=== PATIENT | female | born 1990 | race American Indian/Alaskan Native ===

== ENCOUNTER 2018-03-31 23:53 | Emergency (ER) | payer MEDICAID | END 2018-04-01 00:53 | disposition left against medical advice (07) | LOC: ED 23:53 | DX: R11.0 Nausea (principal); Z53.21 Procedure and treatment not carried out due to patient leaving prior to being seen by health care provider | CPT/HCPCS: 99281 ==

== ENCOUNTER 2019-03-03 07:20 | Emergency (ER) | payer MEDICAID ==
[2019-03-03 07:24] VITALS: BP 163/100
[2019-03-03 08:03] LABS: Basophils % (Auto) 0.4 % (0.0-1.8); Eosinophils % (Auto) 0.7 % (0.0-4.3); Hematocrit 36.7 % (30.3-42.9); Hemoglobin 12.3 gm/dl (10.1-14.3); Lymphocytes # (Auto) 2.1 K/mm3 (1.2-5.4); Mean Corpuscular HGB Conc 34 % (30-34); Mean Corpuscular Volume 90 fl (79-97); Monocytes # (Auto) 0.4 K/mm3 (0.0-0.8); Monocytes % (Auto) 6.4 % (0.0-7.3); Platelet Count 324 K/mm3 (140-440); Red Blood Count 4.09 M/mm3 (3.65-5.03); Red Cell Distribution Width 14.8 % (13.2-15.2)
[2019-03-03 08:05] LABS: Bilirubin,Urine NEG (Negative); Blood,Urine LG (Negative); Color,Urine Red (Yellow); Urobilinogen,Urine < 2.0 mg/dL (<2.0)
--- NOTE | 2019-03-03 08:31 | Emergency Department Report ---
ED General Adult HPI - General Chief complaint: Vaginal Bleeding Stated complaint: VAGINAL BLEEDING Time Seen by Provider: 03/03/19 08:22 Source: patient Mode of arrival: Ambulatory Limitations: No Limitations - History of Present Illness Initial comments: She has 29-year-old female who presents with vaginal bleeding that's been going on for 41 days. Patient states that she has clots she has an appointment with her FREQUENCY CHECKER in April however she has not seen an FREQUENCY CHECKER as of yet. Patient denies having any vaginal intercourse or any sexual intercourse. Patient denies having any vaginal pain. Patient reports symptoms as mild nothing makes it better and nothing makes them worse. - Related Data Home Medications Medication Instructions Recorded Confirmed Last Taken buPROPion [Wellbutrin] 75 mg PO DAILY 09/23/15 05/05/16 09/22/15 Previous Rx's Medication Instructions Recorded Last Taken Type Azithromycin [Zithromax Z-JUAN CARLOS] 250 mg PO DAILY #6 tab 09/23/15 Unknown Rx Brompheniramine/Pseudoephed/Dm 10 ml PO Q12H PRN #150 ml 09/23/15 Unknown Rx [Bromfed Dm Cough Syrup] Ibuprofen [Motrin 800 MG tab] 800 mg PO Q8HR PRN #15 tablet 09/24/18 Unknown Rx guaiFENesin [Robitussin] 200 mg PO TID #100 ml 09/24/18 Unknown Rx predniSONE [Deltasone] 50 mg PO QDAY #5 tab 09/24/18 Unknown Rx Allergies Allergy/AdvReac Type Severity Reaction Status Date / Time azithromycin [From Zithromax] Allergy Hives Verified 03/03/19 07:22 ED Review of Systems ROS: Stated complaint: VAGINAL BLEEDING Other details as noted in HPI Constitutional: denies: chills, fever Eyes: denies: eye pain, eye discharge, vision change ENT: denies: ear pain, throat pain Respiratory: denies: cough, shortness of breath, wheezing Cardiovascular: denies: chest pain, palpitations Endocrine: no symptoms reported Gastrointestinal: denies: abdominal pain, nausea, diarrhea Genitourinary: other (vaginal bleeding). denies: urgency, dysuria, discharge Musculoskeletal: denies: back pain, joint swelling, arthralgia Skin: denies: rash, lesions Neurological: denies: headache, weakness, paresthesias Psychiatric: denies: anxiety, depression Hematological/Lymphatic: denies: easy bleeding, easy bruising ED Past Medical Hx - Past Medical History Hx Hypertension: Yes Hx Headaches / Migraines: Yes - Surgical History Additional Surgical History: c section - Social History Smoking Status: Current Every Day Smoker Substance Use Type: Alcohol - Medications Home Medications: Home Medications Medication Instructions Recorded Confirmed Last Taken Type Azithromycin [Zithromax Z-JUAN CARLOS] 250 mg PO DAILY #6 tab 09/23/15 05/05/16 Unknown Rx Brompheniramine/Pseudoephed/Dm 10 ml PO Q12H PRN #150 ml 09/23/15 05/05/16 Unknown Rx [Bromfed Dm Cough Syrup] buPROPion [Wellbutrin] 75 mg PO DAILY 09/23/15 05/05/16 09/22/15 History Ibuprofen [Motrin 800 MG tab] 800 mg PO Q8HR PRN #15 tablet 09/24/18 Unknown Rx guaiFENesin [Robitussin] 200 mg PO TID #100 ml 09/24/18 Unknown Rx predniSONE [Deltasone] 50 mg PO QDAY #5 tab 09/24/18 Unknown Rx ED Physical Exam - General Limitations: No Limitations General appearance: alert, in no apparent distress - Head Head exam: Present: atraumatic, normocephalic - Eye Eye exam: Present: normal appearance - ENT ENT exam: Present: mucous membranes moist - Neck Neck exam: Present: normal inspection - Respiratory Respiratory exam: Present: normal lung sounds bilaterally. Absent: respiratory distress - Cardiovascular Cardiovascular Exam: Present: regular rate, normal rhythm. Absent: systolic murmur, diastolic murmur, rubs, gallop - GI/Abdominal GI/Abdominal exam: Present: soft, normal bowel sounds - Extremities Exam Extremities exam: Present: normal inspection - Back Exam Back exam: Present: normal inspection - Neurological Exam Neurological exam: Present: alert, oriented X3 - Psychiatric Psychiatric exam: Present: normal affect, normal mood - Skin Skin exam: Present: warm, dry, intact, normal color. Absent: rash ED Course Vital Signs 03/03/19 07:22 Temperature 98.2 F Pulse Rate 107 H Respiratory 16 Rate Blood Pressure 163/100 O2 Sat by Pulse 100 Oximetry ED Medical Decision Making - Lab Data Result diagrams: 03/03/19 07:26 Lab Results 03/03/19 03/03/19 03/03/19 Range/Units 07:26 07:26 07:26 WBC 6.4 (4.5-11.0) K/mm3 RBC 4.09 (3.65-5.03) M/mm3 Hgb 12.3 (10.1-14.3) gm/dl Hct 36.7 (30.3-42.9) % MCV 90 (79-97) fl MCH 30 (28-32) pg MCHC 34 (30-34) % RDW 14.8 (13.2-15.2) % Plt Count 324 (140-440) K/mm3 Lymph % (Auto) 32.0 (13.4-35.0) % Barton % (Auto) 6.4 (0.0-7.3) % Eos % (Auto) 0.7 (0.0-4.3) % Baso % (Auto) 0.4 (0.0-1.8) % Lymph # 2.1 (1.2-5.4) K/mm3 Barton # 0.4 (0.0-0.8) K/mm3 Eos # 0.0 (0.0-0.4) K/mm3 Baso # 0.0 (0.0-0.1) K/mm3 Seg Neutrophils % 60.5 (40.0-70.0) % Seg Neutrophils # 3.9 (1.8-7.7) K/mm3 HCG, Quant < 2 (0-4) mIU/mL Urine Color (Yellow) Urine Turbidity (Clear) Urine pH (5.0-7.0) Ur Specific [place] (1.003-1.030) Urine Protein (Negative) mg/dL Urine Glucose (UA) (Negative) mg/dL Urine Ketones (Negative) mg/dL Urine Blood (Negative) Urine Nitrite (Negative) Urine Bilirubin (Negative) Urine Urobilinogen (<2.0) mg/dL Ur Leukocyte Esterase (Negative) Urine WBC (Auto) (0.0-6.0) /HPF Urine RBC (Auto) (0.0-6.0) /HPF U Epithel Cells (Auto) (0-13.0) /HPF Blood Type B POSITIVE 03/03/19 Range/Units Unknown WBC (4.5-11.0) K/mm3 RBC (3.65-5.03) M/mm3 Hgb (10.1-14.3) gm/dl Hct (30.3-42.9) % MCV (79-97) fl MCH (28-32) pg MCHC (30-34) % RDW (13.2-15.2) % Plt Count (140-440) K/mm3 Lymph % (Auto) (13.4-35.0) % Barton % (Auto) (0.0-7.3) % Eos % (Auto) (0.0-4.3) % Baso % (Auto) (0.0-1.8) % Lymph # (1.2-5.4) K/mm3 Barton # (0.0-0.8) K/mm3 Eos # (0.0-0.4) K/mm3 Baso # (0.0-0.1) K/mm3 Seg Neutrophils % (40.0-70.0) % Seg Neutrophils # (1.8-7.7) K/mm3 HCG, Quant (0-4) mIU/mL Urine Color Red (Yellow) Urine Turbidity Cloudy (Clear) Urine pH 8.0 H (5.0-7.0) Ur Specific [place] 1.018 (1.003-1.030) Urine Protein 100 mg/dl (Negative) mg/dL Urine Glucose (UA) Neg (Negative) mg/dL Urine Ketones Tr (Negative) mg/dL Urine Blood Lg (Negative) Urine Nitrite Neg (Negative) Urine Bilirubin Neg (Negative) Urine Urobilinogen < 2.0 (<2.0) mg/dL Ur Leukocyte Esterase Neg (Negative) Urine WBC (Auto) 4.0 (0.0-6.0) /HPF Urine RBC (Auto) > 182.0 (0.0-6.0) /HPF U Epithel Cells (Auto) 4.0 (0-13.0) /HPF Blood Type - Medical Decision Making Chief medical diagnosis dysfunctional uterine bleeding Differential medical diagnosis: UTI, metromenorrhagia CBC urinalysis next limits and patient's blood work is unremarkable patient's urine just shows hematuria. Social patient that she needs to follow up with her FREQUENCY CHECKER as the FREQUENCY CHECKER can better manage her vaginal bleeding and patient is not anemic and requires no acute medical intervention. Patient's diagnostic workup is unremarkable discussed discharge plan with patient. Patient agrees with plan additional verbal discharge instructions were given. Critical care attestation.: If time is entered above; I have spent that time in minutes in the direct care of this critically ill patient, excluding procedure time. ED Disposition Clinical Impression: Vaginal bleeding Disposition: TO HOME OR SELFCARE Is pt being admited?: No Does the pt Need Aspirin: No Condition: Stable Referrals: MATT CASTANEDA MD [Primary Care Provider] - 3-5 Days
[2019-03-03 08:37] LABS: RBC,Urine > 182.0 /HPF (0.0-6.0)
== END 2019-03-03 08:42 | disposition home or self-care (01) ==
LOC: ED 07:20
DX: N93.9 Abnormal uterine and vaginal bleeding, unspecified (principal); I10 Essential (primary) hypertension; G43.909 Migraine, unspecified, not intractable, without status migrainosus; F17.200 Nicotine dependence, unspecified, uncomplicated; Z88.1 Allergy status to other antibiotic agents
CPT/HCPCS: 36415; 81001; 84702; 84703; 85025; 86900; 86901; 99283

== ENCOUNTER 2020-11-30 02:03 | Emergency (ER) | payer MEDICAID ==
[2020-11-30] MEDS ORDERED: IBUPROFEN 600 MG TAB PO ONE (03:25)
[2020-11-30] MEDS ORDERED: ACETAMINOPHEN 500 MG TAB PO ONE (03:25)
[2020-11-30] MEDS ORDERED: AMOXICILLIN/K CLAV 875/125MG TAB PO ONE (03:25)
--- NOTE | 2020-11-30 03:29 | Emergency Department Report ---
ED General Adult HPI - General Chief complaint: Dental/Oral Stated complaint: DENTAL PAIN Source: patient Mode of arrival: Ambulatory Limitations: No Limitations - History of Present Illness Initial comments: Patient is a 30-year-old -Arm[place]ian female with a history of morbid obesity, hypertension and migraine headaches with chronic recurrent dental abscesses who presents to the ED with acute onset persistence severe right mandibular premolar molar toothache with right mandibular swollen gums and pain for the last 1 month, worse in the last 3 days. Patient states that she has been taking [id number] pain medications with no relief. Patient states that the last 8 hours, she has not been able to sleep because of worsening pain. Patient denies headache, dizziness, syncope, fever, chills, nausea, vomiting, diarrhea, sore throat, change in vision or neck pain and traumatic injury. MD Complaint: dental pain, swollen gums -: Sudden, month(s) (1) Location: mouth Radiation: non-radiation Severity scale (0 -10): 10 Quality: aching, sharp Consistency: constant Improves with: none Worsens with: eating Associated Symptoms: denies other symptoms. denies: confusion, chest pain, cough, diaphoresis, fever/chills, headaches, loss of appetite, malaise, nausea/vomiting, shortness of breath, syncope, weakness, other Treatments Prior to Arrival: none - Related Data Home Medications Medication Instructions Recorded Confirmed Last Taken buPROPion [Wellbutrin] 75 mg PO DAILY 09/23/15 05/05/16 09/22/15 Previous Rx's Medication Instructions Recorded Last Taken Type Azithromycin [Zithromax Z-JUAN CARLOS] 250 mg PO DAILY #6 tab 09/23/15 Unknown Rx Brompheniramine/Pseudoephed/Dm 10 ml PO Q12H PRN #150 ml 09/23/15 Unknown Rx [Bromfed Dm Cough Syrup] guaiFENesin [Robitussin] 200 mg PO TID #100 ml 09/24/18 Unknown Rx predniSONE [Deltasone] 50 mg PO QDAY #5 tab 09/24/18 Unknown Rx Acetaminophen/Codeine [Tylenol 1 tab PO Q6H PRN #12 tab 11/30/20 Unknown Rx /Codeine # 3 tab] Clindamycin [Clindamycin CAP] 300 mg PO Q8HR #60 capsule 11/30/20 Unknown Rx Ibuprofen [Motrin 800 MG tab] 800 mg PO Q8HR PRN #30 tablet 11/30/20 Unknown Rx Allergies Allergy/AdvReac Type Severity Reaction Status Date / Time azithromycin [From Zithromax] Allergy Hives Verified 03/03/19 07:22 ED Review of Systems ROS: Stated complaint: DENTAL PAIN Other details as noted in HPI Constitutional: denies: chills, fever Eyes: denies: eye pain, eye discharge, vision change ENT: dental pain (Right mandibular premolar molar toothache; painful swollen right mandibular gingiva). denies: ear pain, throat pain Respiratory: denies: cough, shortness of breath, wheezing Cardiovascular: denies: chest pain, palpitations, dyspnea on exertion Endocrine: no symptoms reported Gastrointestinal: denies: abdominal pain, nausea, vomiting, diarrhea, constipation, hematemesis, melena Genitourinary: denies: urgency, dysuria, frequency, discharge Musculoskeletal: denies: back pain, joint swelling, arthralgia Skin: denies: rash, lesions Neurological: denies: headache, weakness, paresthesias Psychiatric: denies: anxiety, depression Hematological/Lymphatic: denies: easy bleeding, easy bruising ED Past Medical Hx - Past Medical History Hx Hypertension: Yes Hx Headaches / Migraines: Yes - Surgical History Additional Surgical History: c section - Social History Smoking Status: Current Some Day Smoker Substance Use Type: None - Medications Home Medications: Home Medications Medication Instructions Recorded Confirmed Last Taken Type Azithromycin [Zithromax Z-JUAN CARLOS] 250 mg PO DAILY #6 tab 09/23/15 05/05/16 Unknown Rx Brompheniramine/Pseudoephed/Dm 10 ml PO Q12H PRN #150 ml 09/23/15 05/05/16 Unknown Rx [Bromfed Dm Cough Syrup] buPROPion [Wellbutrin] 75 mg PO DAILY 09/23/15 05/05/16 09/22/15 History guaiFENesin [Robitussin] 200 mg PO TID #100 ml 09/24/18 Unknown Rx predniSONE [Deltasone] 50 mg PO QDAY #5 tab 09/24/18 Unknown Rx Acetaminophen/Codeine [Tylenol 1 tab PO Q6H PRN #12 tab 11/30/20 Unknown Rx /Codeine # 3 tab] Clindamycin [Clindamycin CAP] 300 mg PO Q8HR #60 capsule 11/30/20 Unknown Rx Ibuprofen [Motrin 800 MG tab] 800 mg PO Q8HR PRN #30 tablet 11/30/20 Unknown Rx ED Physical Exam - General Limitations: No Limitations General appearance: alert, in no apparent distress - Head Head exam: Present: atraumatic, normocephalic, normal inspection - Eye Eye exam: Present: normal appearance, PERRL, EOMI Pupils: Present: normal accommodation - ENT ENT exam: Present: mucous membranes moist, TM's normal bilaterally, normal external ear exam, other (Swollen, severely tender right mandibular gingiva with severely tender premolar molar teeth) - Neck Neck exam: Present: normal inspection, full ROM, lymphadenopathy. Absent: tenderness - Respiratory Respiratory exam: Present: normal lung sounds bilaterally. Absent: respiratory distress, wheezes, rales, rhonchi, chest wall tenderness, accessory muscle use, decreased breath sounds, prolonged expiratory - Cardiovascular Cardiovascular Exam: Present: regular rate, normal rhythm, normal heart sounds. Absent: systolic murmur, diastolic murmur, rubs, gallop - GI/Abdominal GI/Abdominal exam: Present: soft, normal bowel sounds. Absent: distended, guarding, rebound, hyperactive bowel sounds, hypoactive bowel sounds, organomegaly - Extremities Exam Extremities exam: Present: normal inspection, full ROM, normal capillary refill - Back Exam Back exam: Present: normal inspection, full ROM. Absent: tenderness, CVA tenderness (R), CVA tenderness (L), muscle spasm, paraspinal tenderness, vertebral tenderness - Neurological Exam Neurological exam: Present: alert, oriented X3, CN II-XII intact, normal gait, reflexes normal - Psychiatric Psychiatric exam: Present: normal affect, normal mood - Skin Skin exam: Present: warm, dry, intact, normal color. Absent: rash ED Medical Decision Making - Medical Decision Making This is a 30-year-old -[place]ian female with a history of morbid obesity, hypertension and migraine headaches with chronic recurrent dental abscesses who presents to the ED with acute onset persistence severe right mandibular premolar molar toothache with right mandibular swollen gums and pain for the last 1 month, worse in the last 3 days. Patient states that she has been taking [id number] pain medications with no relief. Patient states that the last 8 hours, she has not been able to sleep because of worsening pain. In the ED, patient is alert and oriented x3 and is not in distress but appears to be in significant pain. Patient was treated for pain in the ED and given initial oral antibiotics in the ED. On reevaluation, patient's pain is well controlled medications. Patient will discharge home on pain medications and antibiotics and was advised to follow-up with her dentist or primary care physician in 7 to 10 days for reevaluation. Patient was advised return to the ED immediately if symptoms get worse. - Differential Diagnosis Dental abscess; acute gingivitis,; dental cavities; Critical care attestation.: If time is entered above; I have spent that time in minutes in the direct care of this critically ill patient, excluding procedure time. ED Disposition Clinical Impression: Dental abscess, Dental caries, Acute gingivitis Disposition: TO HOME OR SELFCARE Is pt being admited?: No Does the pt Need Aspirin: No Condition: Stable Instructions: Dental Abscess, [id number], Dental Extraction, [id number], Trench Mouth Additional Instructions: Take medication with food, drink plenty of fluids and follow-up with the dentist or primary care physician in 7 to 10 days for reevaluation. Return to the ED immediately if symptoms get worse. Prescriptions: Clindamycin [Clindamycin CAP] 300 mg PO Q8HR #60 capsule Ibuprofen [Motrin 800 MG tab] 800 mg PO Q8HR PRN #30 tablet PRN Reason: Headache Acetaminophen/Codeine [Tylenol /Codeine # 3 tab] 1 tab PO Q6H PRN #12 tab PRN Reason: severe pain Referrals: [facility] [Outside] - 7-10 days Time of Disposition: 03:27 Print Language: CAP[place]
[2020-11-30 04:09] VITALS: BP 145/97
== END 2020-11-30 04:06 | disposition home or self-care (01) ==
LOC: ED 02:03
DX: K04.7 Periapical abscess without sinus (principal); K02.9 Dental caries, unspecified; K05.00 Acute gingivitis, plaque induced; I10 Essential (primary) hypertension; G43.909 Migraine, unspecified, not intractable, without status migrainosus; F17.200 Nicotine dependence, unspecified, uncomplicated; Z98.890 Other specified postprocedural states; Z79.1 Long term (current) use of non-steroidal anti-inflammatories (NSAID); Z79.2 Long term (current) use of antibiotics; Z79.899 Other long term (current) drug therapy; Z88.8 Allergy status to other drugs, medicaments and biological substances
CPT/HCPCS: 99282